=== PATIENT | male | born 1965 | race Caucasian/White ===

== ENCOUNTER 2018-01-26 05:58 | Day surgery (SDC) | payer OTHER ==
[2018-01-26] MEDS ORDERED: CEFAZOLIN 2 GM/50 ML (PMX) 50 ML IVPB (06:00)
[2018-01-26] MEDS ORDERED: SOD CHLORIDE 0.9% 1,000 ML IV (06:00)
[2018-01-26] MEDS ORDERED: BUPIVACAINE 0.25%/EPI (MDV) 50 ML VIAL INJ (06:41)
[2018-01-26] MEDS: POLYMYXIN/BACITRACIN 1L IRRIG (07:02)
[2018-01-26] MEDS ORDERED: CEFAZOLIN 1 GM INJ (07:32)
[2018-01-26] MEDS ORDERED: PROPOFOL 20 ML (07:32)
[2018-01-26] MEDS ORDERED: ROCURONIUM 50 MG INJ (07:32)
[2018-01-26] MEDS ORDERED: ONDANSETRON 4 MG INJ (07:32)
[2018-01-26] MEDS ORDERED: MIDAZOLAM 1 MG/ML 2 ML INJ (07:32)
[2018-01-26] MEDS ORDERED: DEXAMETHASONE 4 MG/ML 1 ML INJ (07:32)
[2018-01-26] MEDS ORDERED: GLYCOPYRROLATE 0.4 MG INJ (07:32)
[2018-01-26] MEDS ORDERED: FENTAnyl 50 MCG/ML VIAL (07:32)
[2018-01-26] MEDS ORDERED: ROPIVACAINE 0.5 % 30 ML VIAL (07:32)
[2018-01-26] MEDS ORDERED: NEOSTIGMINE 3 MG/3 ML SYRINGE (07:32)
[2018-01-26] MEDS ORDERED: KETOROLAC 30 MG INJ (08:08)
[2018-01-26] MEDS ORDERED: FENTAnyl 50 MCG/ML VIAL IV ×3 (08:30)
[2018-01-26] MEDS ORDERED: DIPHENHYDRAMINE 50 MG INJ IV (08:30)
[2018-01-26] MEDS ORDERED: LABETALOL HCL 20MG INJ IV (08:30)
[2018-01-26] MEDS ORDERED: EPHEDrine SULFATE 50 MG/5 ML SYG IV (08:30)
[2018-01-26] MEDS ORDERED: ONDANSETRON 4 MG INJ IV (08:30)
[2018-01-26] MEDS ORDERED: IPRATROPIUM (NEB) 0.5 MG/2.5 ML AMP HHN (08:30)
[2018-01-26] MEDS ORDERED: MIDAZOLAM 1 MG/ML 2 ML INJ IV (08:30)
[2018-01-26] MEDS ORDERED: TRIMETHOBENZAMIDE 100 MG/ML VIAL IM (08:30)
[2018-01-26] MEDS ORDERED: ALBUTEROL 0.083% (NEB) 2.5 MG/3 ML AMP HHN (08:30)
[2018-01-26] MEDS ORDERED: HYDROmorphONE 1 MG/5 ML IV SYRINGE IV ×3 (08:30)
[2018-01-26] MEDS ORDERED: MEPERIDINE 25 MG INJ IV (08:30)
[2018-01-26] MEDS ORDERED: OXYCODONE/ACETAMINOPHEN (5/325) TAB PO ×2 (08:30)
[2018-01-26] MEDS ORDERED: HYDROCODONE/APAP (5/325) TAB PO (09:00)
[2018-01-26] MEDS: hydrALAzine 20 MG INJ IV (09:24)
== END 2018-01-26 10:43 | disposition home or self-care (01) ==
LOC: SDS 05:58
DX: K40.90 Unilateral inguinal hernia, without obstruction or gangrene, not specified as recurrent (principal); E78.5 Hyperlipidemia, unspecified
CPT/HCPCS: 49507